=== PATIENT | male | born 1960 | race Caucasian/White ===

== ENCOUNTER 2020-10-11 10:14 | Emergency (ER) | payer OTHER, SELFPAY ==
[2020-10-11 10:28] VITALS: BP 125/81; PULSE 53; RESP 16; TEMP 36.3; O2SAT 99
--- NOTE | 2020-10-11 10:54 | ED.EYEPROB ---
HPI - Eye Problem General Chief complaint: Eye Problems Stated complaint: Eye Pain History of Present Illness HPI Narrative: This is a 60-year-old comes in complaining of right eye pain states that his eyes started itching and he was rubbing it and it continued to progress approximately for about a week now his right eyes swollen with some erythema only on the right eye patient denies taking anything for symptoms. Related Data Allergies Allergy/AdvReac Type Severity Reaction Status Date / Time No Known Allergies Allergy Mild Unverified 10/11/20 10:43 Review of Systems Review of Systems: CONSTITUTIONAL: Denies fever, chills, or sweats. EYES: Complains of visual changes, redness, denies discharge. Complains of right eyelid swelling ENT: Denies rhinorrhea, congestion, sore throat, or otalgia. CARDIOVASCULAR:Denies chest pain, palpitations, or edema. RESPIRATORY: Denies cough or dyspnea. GASTROINTESTINAL: Denies abdominal pain, nausea, vomiting, or diarrhea. GENITOURINARY: Denies dysuria or hematuria. SKIN:[Denies rash or itching. MUSCULOSKELETAL:Denies back pain, joint pain, or myalgia. NEUROLOGIC: Denies headache, numbness, or weakness. PSYCHIATRIC:Denies anxiety or depression PMFSH Comments At time as signature, I have reviewed and agree with nursing past medical, social, surgical and family history. Please see nursing chart for further information. There is no relevant family history pertinent to the presenting complaint. Exam Narrative: GENERAL:Well-appearing, well-nourished, and in no acute distress. HEAD:Normocephalic, atraumatic. EYES: PERRLA vision acuity stable right eyelid swollen with some discoloration ENT: Nares clear, no rhinorrhea or epistaxis. Mucous membranes moist. NECK: Supple. CHEST: Clear to auscultation. No respiratory distress. HEART: Regular rate and rhythm. No murmur heard. Normal peripheral pulses. ABDOMEN: Soft, nontender, nondistended, normal active bowel sounds. EXTREMITIES: Normal range of motion. No edema. SKIN: Warm, dry, no rash. NEURO: No focal deficits. Alert and oriented x3. Course Vital Signs Vital signs: Vital Signs Temperature 97.4 F L 10/11/20 10:28 Pulse Rate 53 L 10/11/20 10:28 Respiratory Rate 16 10/11/20 10:28 Blood Pressure 125/81 10/11/20 10:28 Pulse Oximetry 99 10/11/20 10:28 Temperature 97.4 F L 10/11/20 10:28 Pulse Rate 53 L 10/11/20 10:28 Respiratory Rate 16 10/11/20 10:28 Blood Pressure 125/81 10/11/20 10:28 Pulse Oximetry 99 10/11/20 10:28 MDM - Eye Problem Differential Diagnosis Differential diagnosis: Likely corneal abrasion, conjunctivitis, periorbital cellulitis and other (Allergic rhinitis) Lab Data Labs: Lab Results 10/11/20 Range/Units 11:20 POC SARS CoV-2 Ag Negative (Negative) Discharge Plan Discharge Clinical Impression: Eye swollen, left Allergies Qualifiers: Encounter type: initial encounter Qualified Code(s): T78.40XA - Allergy, unspecified, initial encounter Patient Disposition: Home, Self-Care Condition: Stable Instructions: Antibiotic Form, Allergic Rhinitis (ED), Allergies (ED) Additional Instructions: Cool compression to the eye wash hands prior to putting eye drop continue taking allergy medication Your rapid Covid -19 today is negative if you should start to have symptoms please make sure that you are retested this is negative for today. Thank you for allowing me to take care of you today. Prescriptions: New methylprednisolone [Medrol (Mook)] 4 mg tablets,dose pack See Rx Instructions .ROUTE .COMPLEX Qty: 21 RF: 0 Zyrtec 10 mg capsule 10 mg PO DAILY PRN (Reason: allergy symptoms) Qty: 30 RF: 0 ofloxacin 0.3 % drops See Rx Instructions .ROUTE .COMPLEX Qty: 10 RF: 0 Follow-up/Referrals: Phoenix Mcmanus MD [Primary Care Provider] - Time of Disposition: 11:31
== END 2020-10-11 11:55 | disposition home or self-care (01) ==
PROVIDERS: Emergency Provider Nurse Practitioner Family; PCP Family Medicine
DX: H02.843 Edema of right eye, unspecified eyelid (principal); T78.40XA Allergy, unspecified, initial encounter; X58.XXXA Exposure to other specified factors, initial encounter; Z20.822 Contact with and (suspected) exposure to COVID-19
CPT/HCPCS: 87426; 99213; C9803; G0463